=== PATIENT | female | born 2000 | race African-American/Black ===

== ENCOUNTER 2020-09-15 16:02 | Emergency (ER) | payer MEDICAID ==
[~2020-09-15] VITALS: Ht 175.3 cm; Wt 51.0 kg
[2020-09-15] MEDS ORDERED: ACETAMINOPHEN 325MG TABLET PO ONE (19:00)
[2020-09-15] MEDS ORDERED: LIDOCAINE HCL/PF 1% 10 MG/ML 5ML VIAL IJ ONE (19:45)
[2020-09-15 20:25] VITALS: BP 119/79
== END 2020-09-15 20:36 | disposition home or self-care (01) ==
LOC: ER 16:02
DX: S92.912A Unspecified fracture of left toe(s), initial encounter for closed fracture (principal); W22.8XXA Striking against or struck by other objects, initial encounter; Y93.89 Activity, other specified; Y92.89 Other specified places as the place of occurrence of the external cause; Y99.8 Other external cause status
CPT/HCPCS: 73630; 81025; 99283; J3490; Z7610